=== PATIENT | female | born 1990 | race Caucasian/White ===

== ENCOUNTER 2017-08-18 19:05 | Emergency (ER) | payer OTHER ==
[2017-08-18 19:56] LABS: Hematocrit 39 % (35-47); Hemoglobin 13.3 g/dl (12.0-16.0); Mean Corpuscular HGB Conc 34 g/dl (31-36); Mean Corpuscular Hemoglobin 32 pg (27-31); Mean Corpuscular Volume 92 fL (80-97); Mean Platelet Volume 10 um3 (7.4-10.4); Red Blood Count 4.22 10^6/ul (4.0-5.4); Red Cell Distribution Width 13 % (10.5-15); White Blood Count 5.4 10^3/ul (3.5-10.8)
--- NOTE | 2017-08-18 19:56 | ED ---
- HPI Summary HPI Summary: 26F LMP jun 23 at 9 weeks presents with vaginal bleeding for a week. She states on Monday she started to have spotting. she has been cramping all week. no recent illness. no nausea or vomiting. no trauma. states feels similar to the miscarriage had in the past. [facility] She had a normal u/s yesterday. Today she states she has been soaking a pad every 2 hours. She denies any lightheadedness or palpitations. she denies any fever. She denies any dysuria. - History of Current Complaint Chief Complaint: EDOBProblems Stated Complaint: POSS MISCARRIAGE Time Seen by Provider: 08/18/17 19:39 Pain Intensity: 5 - Assessment SAB: 0 IEA: 0 - Additional Pertinent History Maternal Blood Type and Rh: A Positive - Allergies/Home Medications Allergies/Adverse Reactions: Allergies Allergy/AdvReac Type Severity Reaction Status Date / Time No Known Allergies Allergy Verified 06/07/13 08:24 PMH/Surg Hx/FS Hx/Imm Hx Endocrine/Hematology History: Denies: Hx Anticoagulant Therapy Cardiovascular History: Denies: Hx Hypertension Infectious Disease History: No Infectious Disease History: Denies: Traveled Outside the [place] in Last 30 Days - Family History Known Family History: Negative: Blood Disorder - Social History Alcohol Use: Occasionally Substance Use Type: Reports: None Review of Systems Negative: Fever Negative: Chest Pain Negative: Shortness Of Breath Positive: Abdominal Pain - pelvic cramping, Other - vaginal bleeding. Negative : Vomiting, Nausea All Other Systems Reviewed And Are Negative: Yes Physical Exam - Physical Exam Triage Information Reviewed: Yes Vital Signs Reviewed: Yes Appearance: Positive: Well-Appearing Skin: Positive: Warm, Dry Head/Face: Positive: Normal Head/Face Inspection Eyes: Positive: Normal, Conjunctiva Clear Respiratory/Lung Sounds: Positive: Clear to Auscultation, Breath Sounds Present Cardiovascular: Positive: Normal, RRR Abdomen Description: Positive: Nontender, Soft Bowel Sounds: Positive: Present - Vaginal Assessment Presentation Comment: portable ultrasound used to verify presentation Diagnostics - Vital Signs Vital Signs Temp Pulse Resp BP Pulse Ox 08/18/17 19:06 97.9 F 68 16 122/73 100 - Laboratory Result Diagrams: 08/18/17 19:47 08/18/17 19:47 Lab Statement: Any lab studies that have been ordered have been reviewed, and results considered in the medical decision making process. - Ultrasound No standard instances Ultrasound Interpretation: Positive (See Comments) - IMPRESSION: There is a intrauterine gestational sac with subchorionic hemorrhage however no pole is identified. This gestational sac measures 7 weeks 3 days. This likely represents a blighted ovum. No adnexal masses are noted. Ultrasound Interpretation Completed By: Radiologist Course/Dx - Course Course Of Treatment: 26F LMP jun 23 at 9 weeks presents with vaginal bleeding for a week. She states on Monday she started to have spotting. she has been cramping all week. no recent illness. no nausea or vomiting. no trauma. states feels similar to the miscarriage had in the past. [facility]. She had a normal u/s yesterday. Today she states she has been soaking a pad every 2 hours. She denies any lightheadedness or palpitations. she denies any fever. She denies any dysuria. nontender abdomen. blood bank shows blood type A+. vitals stable. h/h stable. HCG only 2023 compared with 1700 two weeks ago. u/s shows subchorionic hemorrhage with no pole so likely blighted ovum. discussed with dr wen will have discharge home with follow up with obgyn. patient understands and agrees with plan. - Differential Diagnosis/HQI/PQRI: Incomplete , Spontaneous , Threatened - Diagnoses Provider Diagnoses: Subchorionic bleed, Vaginal bleeding in Discharge - Discharge Plan Condition: Good Disposition: HOME Patient Education Materials: Miscarriage (ED) Referrals: Ney Nunes MD [Primary Care Provider] - Sri Henry MD [Medical Doctor] - Additional Instructions: Take tyenlol every 6 hours for pain Follow up with OBGYN as will need repeat HCG level drawn to trend Return to ED if develop severe abdominal pain, fever, severe bleeding with symptoms such as lightheadedness or any new or worsening symptoms
[2017-08-18 19:59] LABS: Urine Bacteria Absent (Absent); Urine Bilirubin Negative (Negative); Urine Glucose Negative (Negative); Urine Nitrite Negative (Negative)
[2017-08-18 20:13] LABS: Albumin 4.6 g/dL (3.2-5.2); BUN/Creatinine Ratio 14.3 (8-20); Calcium 9.5 mg/dL (8.6-10.3); EGFR African American 129.1 (>60); EGFR Non-African American 100.4 (>60); Globulin 2.8 g/dL (2-4); Potassium 3.8 mmol/L (3.5-5.0); Total Bilirubin 0.6 mg/dL (0.2-1.0); Total Protein 7.4 g/dL (6.4-8.9)
--- NOTE | 2017-08-18 20:36 | RAD ---
Indication: Vaginal bleeding. Real-time sonography was performed. There is no evidence of intrauterine pole. Yolk sac measures 2.1 mm. The gestational sac measures 2.3 cm. Right ovary measures 3.2 x 2.1 x 2.0 cm. Left ovary measures 4.0 x 1.2 x 2.0 cm. The uterus measures 9.2 x 5.2 x 6.9 cm. A small subchorionic hemorrhage is noted measuring 15 x 9 x 18 mm. IMPRESSION: There is a intrauterine gestational sac with subchorionic hemorrhage however no pole is identified. This gestational sac measures 7 weeks 3 days. This likely represents a blighted ovum. No adnexal masses are noted.
[2017-08-18 20:59] VITALS: BP 120/70
== END 2017-08-18 20:59 | disposition home or self-care (01) ==
LOC: ED 19:05
DX: O46.91 Antepartum hemorrhage, unspecified, first trimester (principal); Z3A.09 9 weeks gestation of pregnancy
CPT/HCPCS: 36415; 76817; 80053; 81003; 81015; 84702; 85025; 85610; 85730; 99282